=== PATIENT | male | born 1960 | race Caucasian/White ===

== ENCOUNTER 2021-04-25 12:30 | Emergency (ER) | payer OTHER ==
[~2021-04-25] VITALS: Ht 177.8 cm; Wt 76.0 kg
--- NOTE | 2021-04-25 12:59 | NUR ---
WHEAT GROWER: PT TO ROOM FROM LOBBY
[2021-04-25 13:55] LABS: BASOPHILS % (AUTO) 0 % (0-1); EOSINOPHILS % (AUTO) 1 % (1-7); LYMPHOCYTES % (AUTO) 15 % (22-44); MEAN CORPUSCULAR HEMOGLOBIN 29.6 pg (27.5-34.5); MEAN CORPUSCULAR HGB CONC 34.5 g/dL (33.2-36.2); MEAN PLATELET VOLUME 9.4 fL (7.4-10.4); MONOCYTES % (AUTO) 7 % (2-9); NEUTROPHILS % (AUTO) 77 % (42-75); PLATELET COUNT 223 x10^3/uL (130-400); RED BLOOD COUNT 5.18 x10^6/uL (4.38-5.82); RED CELL DISTRIBUTION WIDTH 13.4 % (9.4-14.8)
[2021-04-25 13:57] LABS: MD NO
[2021-04-25 14:02] LABS: ANION GAP 5 mmol/L (5-15); CALCIUM 8.9 mg/dL (8.5-10.1); CHLORIDE 109 mmol/L (98-107); CREATININE 0.92 mg/dL (0.7-1.3)
[2021-04-25 14:05] LABS: TROPONIN I < 0.015 ng/mL (0.000-0.045)
[2021-04-25 15:05] VITALS: BP 126/83
== END 2021-04-25 16:17 | disposition home or self-care (01) ==
LOC: ED 13:17
DX: R07.2 Precordial pain (principal); R94.31 Abnormal electrocardiogram [ECG] [EKG]
CPT/HCPCS: 36415; 71045; 80048; 82040; 84484; 85025; 85379; 93005; 99285